=== PATIENT | female | born 1970 | race Caucasian/White ===

== ENCOUNTER 2018-01-21 23:09 | Emergency (ER) | payer SELFPAY ==
[~2018-01-21] VITALS: Ht 152.4 cm; Wt 59.0 kg
[2018-01-21 23:13] VITALS: Ht 152.4 cm; Wt 59.0 kg
[2018-01-22 01:41] VITALS: BP 108/64
== END 2018-01-22 | disposition home or self-care (01) ==
LOC: D.ER 23:09
DX: T78.40XA Allergy, unspecified, initial encounter (principal); X58.XXXA Exposure to other specified factors, initial encounter